=== PATIENT | male | born 1945 | race Caucasian/White ===

== ENCOUNTER → 2017-02-24 | Outpatient (CLI) | payer BC ==
[~2017-02-24] MED LIST: ASPI81TA28 PO; ATOR10TA82 PO; BUPRTAB51 PO; CALC0.2510 PO; CALC500C70 PO; COEN1CAP28 PO; GABA-113 PO; GLC/500 PO; HYDR25TA4 PO; IBUP-1450 PO; MULT-513 PO; OMEG10007 PO; PANT40TA PO; SILD100T PO; TAMS0.4C38 PO; campral PO; nasonex NAE
== END | disposition home or self-care (01) ==
LOC: C.LAB1850 08:42
PROVIDERS: ATTEND Urology
DX: N41.1 Chronic prostatitis (principal)

== ENCOUNTER → 2017-03-10 | Outpatient (CLI) | payer BC | END | disposition home or self-care (01) | LOC: C.MAMM 08:33 | PROVIDERS: ATTEND Internal Medicine Endocrinology, Diabetes & Metabolism | DX: M81.0 Age-related osteoporosis without current pathological fracture (principal); M85.89 Other specified disorders of bone density and structure, multiple sites ==

== ENCOUNTER → 2017-04-08 | Outpatient (CLI) | payer BC ==
[2017-04-08 14:59] LABS: CALCIUM 8.9 mg/dl (8.5-10.1)
== END | disposition home or self-care (01) ==
LOC: C.LAB1850 13:25
PROVIDERS: ATTEND Internal Medicine Endocrinology, Diabetes & Metabolism
DX: M81.0 Age-related osteoporosis without current pathological fracture (principal)

== ENCOUNTER → 2017-04-08 | Outpatient (CLI) | payer BC ==
--- NOTE | 2017-04-08 10:15 | DIAGNOSTIC IMAGING REPORT ---
L-SPINE MIN 4 VIEWS ROUTINE CLINICAL HISTORY: DORSALGIA COMPARISON: Lumbar spine radiographs October 16, 2015. FINDINGS: Alignment of lumbar spine is anatomic. No acute fracture is present. Disc spaces are preserved. There is mild endplate osteophytosis as well as moderate multilevel facet arthrosis. IMPRESSION: 1. No acute lumbar spine fracture. 2. Mild multilevel degenerative disc disease and moderate facet arthrosis. Electronically signed by: Ward Lara M.D. 04/08/2017 10:14 AM Dictated Date/Time: 04/08/2017 10:12 AM
== END | disposition home or self-care (01) ==
LOC: C.RAD1850 09:40
PROVIDERS: ATTEND Family Medicine
DX: M54.9 Dorsalgia, unspecified (principal); M12.88 Other specific arthropathies, not elsewhere classified, other specified site

== ENCOUNTER → 2017-04-09 | Day surgery (SDC) | payer BC ==
[~2017-04-09] VITALS: Ht 176.5 cm; Wt 109.0 kg
[~2017-04-09] MED LIST changes: +ZOLEDRONIC ACID INJ 5 MG in EMPTY BAG 0 ML IV SCH
[2017-04-09 10:10] VITALS: BP 146/77; PULSE 70; TEMP 36.8; O2SAT 96; Ht 176.5 cm; Wt 109.0 kg
[2017-04-09 11:03] VITALS: BP 122/76; PULSE 66; TEMP 36.7
== END | disposition home or self-care (01) ==
LOC: C.MTU 09:51 → EDSTATUS 10:00
PROVIDERS: ATTEND Internal Medicine Endocrinology, Diabetes & Metabolism
DX: M81.0 Age-related osteoporosis without current pathological fracture (principal)

== ENCOUNTER → 2017-05-05 | Outpatient (CLI) | payer BC ==
[~2017-05-05] MED LIST changes: -ATOR10TA82 PO; +ATOR10TA88 PO; -ZOLEDRONIC ACID INJ 5 MG in EMPTY BAG 0 ML IV SCH
== END | disposition home or self-care (01) ==
LOC: C.RDSM 14:10
PROVIDERS: ATTEND Family Medicine
DX: M25.552 Pain in left hip (principal)